=== PATIENT | male | born 1955 | race African-American/Black ===

== ENCOUNTER 2019-04-22 21:14 | Emergency (ER) | payer SELFPAY ==
[2019-04-22 21:52] LABS: #Basophils 0.1 thou/uL (0.0-0.2); #Eosinphils 0.2 thou/uL (0.0-0.7); #Lymphocytes 0.9 thou/uL (1.20-3.40); #Monocytes 0.6 thou/uL (0.11-0.59); #Neutrophils 3.3 thou/uL (1.40-6.50); %Basophils 1.4 % (0.0-1.0); %Eosinophils 4.8 % (0.0-10.0); %Lymphocytes 17.3 % (21.0-51.0); %Monocytes 12.4 % (0.0-10.0); %Neutrophils 64.1 % (42.0-75.0); Hemoglobin 13.4 g/dL (14.0-18.0); Mean Corpuscular HGB CONC 30.2 g/dL (32.0-36.0); Mean Corpuscular Volume 89.5 fL (78.0-98.0); Mean Platelet Volume 5.9 fL (7.4-10.4); Platelet Count 250 thou/uL (130-400); RBC Distribution Width 16.5 % (11.5-14.5); Red Blood Cell (RBC) Count 4.94 mill/uL (4.70-6.10); White Blood Cell (WBC) Count 5.1 thou/uL (4.8-10.8)
[2019-04-22 21:57] LABS: INR-International Normal Ratio 1.3; PTT 33.6 SEC (22.9-36.1); Prothrombin Time 16.4 SEC (12.0-14.7)
[2019-04-22 21:58] LABS: D-Dimer Test 2.83 *mcg/mL (0.27-0.43)
--- NOTE | 2019-04-22 22:04 | RAD ---
Chest 2 views HISTORY: Dyspnea. . FINDINGS: No comparison. Cardiac silhouette is enlarged. Pulmonary vasculature is engorged with wides pread reticulonodular interstitial prominence. Blunting right lateral costophrenic angle with some fluid tracking along the right pleural fissures. No lobar consolidation or evidence of pneumothorax. IMPRESSION: Cardiomegaly with mild pulmonary edema. Right pleural fluid.
[2019-04-22 22:05] LABS: ALT (SGPT) 22 U/L (8-55); AST (SGOT) 34 U/L (5-34); Albumin 3.5 g/dL (3.4-4.8); Alcohol 15 mg/dL (Less than 10); Alkaline Phosphatase 139 U/L (40-150); Anion Gap 17 mmol/L (10-20); BUN (Urea Nitrogen) 11 mg/dL (8.4-25.7); Bilirubin, Total 1.3 mg/dL (0.2-1.2); Calc. Creatinine Clearance 0 mL/min (70-130); Carbon Dioxide 24 mmol/L (23-31); Chloride 103 mmol/L (98-107); Estimated GFR-MDRD 81; Globulin 4.3 g/dL (2.4-3.5); Glucose 90 mg/dL (80-115); Potassium 3.5 mmol/L (3.5-5.1); Protein, Total 7.8 g/dL (5.8-8.1); Sodium 140 mmol/L (136-145)
[2019-04-22] MEDS ORDERED: Furosemide 40 MG/4 ML VIAL ONE (22:13)
[2019-04-22 22:22] LABS: CKMB 2.7 ng/mL (0-6.6)
[2019-04-22] MEDS ORDERED: Aspirin Chewable 81 MG TAB ONE (22:39)
== END 2019-04-22 23:02 | disposition short-term general hospital (02) ==
LOC: NAV ERS 21:14
DX: K74.60 Unspecified cirrhosis of liver (principal); I11.0 Hypertensive heart disease with heart failure; I50.9 Heart failure, unspecified; R79.89 Other specified abnormal findings of blood chemistry; Z79.899 Other long term (current) drug therapy
CPT/HCPCS: 71046; 80053; 80307; 82274; 82553; 83735; 83880; 84484; 85025; 85379; 85610; 85730; 93005; 94760; 96374; J1940

== ENCOUNTER 2019-07-14 03:17 | Emergency (ER) | payer SELFPAY ==
[2019-07-14 04:05] LABS: Eosinophils 2 % (0-10); Hemoglobin 12.4 g/dL (14.0-18.0); Lymphocytes 26 % (21-51); MDiff Complete? YES; Mean Corpuscular HGB CONC 30.7 g/dL (32.0-36.0); Mean Corpuscular Hemoglobin 28.3 pg (27.0-31.0); Mean Corpuscular Volume 92.2 fL (78.0-98.0); Monocytes 12 % (0-10); Neutrophil 60 % (42-75); Platelet Count 156 thou/uL (130-400); Platelet Morphology Comment Appears Adequate; RBC Distribution Width 16.5 % (11.5-14.5); RBC Morphology Normal; Red Blood Cell (RBC) Count 4.39 mill/uL (4.70-6.10); White Blood Cell (WBC) Count 3.9 thou/uL (4.8-10.8)
[2019-07-14 04:17] LABS: ALT (SGPT) 20 U/L (8-55); AST (SGOT) 24 U/L (5-34); Albumin 3.5 g/dL (3.4-4.8); Alkaline Phosphatase 134 U/L (40-150); Anion Gap 15 mmol/L (10-20); BUN (Urea Nitrogen) 10 mg/dL (8.4-25.7); Calc. Creatinine Clearance 0 mL/min (70-130); Calcium 9.2 mg/dL (7.8-10.44); Carbon Dioxide 22 mmol/L (23-31); Chloride 110 mmol/L (98-107); Estimated GFR-MDRD 85; Globulin 3.2 g/dL (2.4-3.5); Glucose 101 mg/dL (80-115); Potassium 3.5 mmol/L (3.5-5.1); Protein, Total 6.7 g/dL (5.8-8.1); Sodium 143 mmol/L (136-145)
--- NOTE | 2019-07-14 07:24 | RAD ---
CHEST 1 VIEW: Date: 07/14/19 INDICATION: Bilateral leg pain and swelling for 1 month with dyspnea. COMPARISON: Prior exam dated 07/01/19. FINDINGS: There is cardiomegaly with pulmonary vascular congestion and bilateral pleural effusions. This appear s largely stable to the prior exam. No pneumothorax is evident. No acute osseous abnormality is noted . IMPRESSION: Findings of mild to moderate CHF. POS: BH
== END 2019-07-14 04:38 | disposition home or self-care (01) ==
LOC: NAV ERS 03:17
DX: I11.0 Hypertensive heart disease with heart failure (principal); I50.9 Heart failure, unspecified; Z79.899 Other long term (current) drug therapy
CPT/HCPCS: 36415; 71045; 80053; 83880; 84484; 85025; 93005

== ENCOUNTER 2020-04-24 11:25 | Emergency (ER) | payer MEDICAID, OTHER ==
[2020-04-25 15:33] LABS: SARS-CoV-2 MS2 Positive; SARS-CoV-2 N Gene Positive; SARS-CoV-2 S Gene Positive; SARS-CoV-2 orf1ab Positive
== END 2020-04-24 11:57 | disposition home or self-care (01) ==
LOC: NAV ERS 11:25
DX: U07.1 COVID-19 (principal); I11.0 Hypertensive heart disease with heart failure; I50.9 Heart failure, unspecified; Z79.82 Long term (current) use of aspirin; Z79.899 Other long term (current) drug therapy
CPT/HCPCS: 87635; 99283; U0003

== ENCOUNTER 2020-05-22 07:47 | Emergency (ER) | payer OTHER ==
[2020-05-24 11:33] LABS: SARS-CoV-2 MS2 Positive; SARS-CoV-2 N Gene Positive; SARS-CoV-2 S Gene Positive; SARS-CoV-2 by NAA DETECTED (NotDetected); SARS-CoV-2 orf1ab Positive
== END 2020-05-22 08:33 | disposition home or self-care (01) ==
LOC: NAV ERS 07:47
DX: U07.1 COVID-19 (principal); I11.0 Hypertensive heart disease with heart failure; I50.9 Heart failure, unspecified; Z79.899 Other long term (current) drug therapy; Z79.82 Long term (current) use of aspirin
CPT/HCPCS: 87635; 99283; U0003

== ENCOUNTER 2020-07-04 08:44 | Emergency (ER) | payer OTHER ==
[2020-07-04 10:05] LABS: #Basophils 0.1 thou/uL (0.0-0.2); #Eosinphils 0.3 thou/uL (0.0-0.7); #Lymphocytes 0.3 thou/uL (1.20-3.40); #Monocytes 0.4 thou/uL (0.11-0.59); #Neutrophils 2.4 thou/uL (1.40-6.50); %Basophils 2.6 % (0.0-1.0); %Eosinophils 7.5 % (0.0-10.0); %Lymphocytes 9.3 % (21.0-51.0); %Monocytes 12.2 % (0.0-10.0); %Neutrophils 68.5 % (42.0-75.0); Hemoglobin 12.7 g/dL (14.0-18.0); Mean Corpuscular HGB CONC 29.4 g/dL (32.0-36.0); Mean Corpuscular Hemoglobin 27.9 pg (27.0-31.0); Mean Corpuscular Volume 94.6 fL (78.0-98.0); Mean Platelet Volume 7.1 fL (7.4-10.4); Platelet Count 125 thou/uL (130-400); RBC Distribution Width 13.3 % (11.5-14.5); Red Blood Cell (RBC) Count 4.56 mill/uL (4.70-6.10); White Blood Cell (WBC) Count 3.5 thou/uL (4.8-10.8)
[2020-07-04 10:15] LABS: Bilirubin Small (Negative); Blood, Urine Negative (Negative); Clarity Clear (Clear); Glucose, Urine (Dipstick) Negative (Negative); Ketone, Urine 15 mg/dL (Negative); Leukocyte Negative (Negative); Nitrite Negative (Negative); Specific Gravity, Urine 1.025 (1.005-1.030); Urobilinogen > or = 8.0 mg/dL (Less than 2); pH, Urine 5.5 (5.0-9.0)
--- NOTE | 2020-07-04 10:15 | RAD ---
EXAM: Single view of the chest HISTORY: Weakness COMPARISON: 07/17/2019 FINDINGS: Single view of the chest shows an enlarged but stable cardiomediastinal silhouette. There i s stable obscurity of the right costophrenic angle which may represent a small pleural effusion or scarring. No acute osseous abnormality. IMPRESSION: 1. Stable cardiomegaly 2. Stable small right pleural effusion
[2020-07-04 10:17] LABS: Protein, Urine (Dipstick) Trace mg/dL (Neg-Trace)
[2020-07-04 10:18] LABS: ALT (SGPT) 22 U/L (8-55); AST (SGOT) 21 U/L (5-34); Albumin 3.7 g/dL (3.4-4.8); Alkaline Phosphatase 107 U/L (40-110); Anion Gap 13 mmol/L (10-20); BUN (Urea Nitrogen) 13 mg/dL (8.4-25.7); Calc. Creatinine Clearance 0 mL/min (70-130); Calcium 8.7 mg/dL (7.8-10.44); Carbon Dioxide 23 mmol/L (23-31); Chloride 110 mmol/L (98-107); Estimated GFR-MDRD 77; Globulin 2.7 g/dL (2.4-3.5); Glucose 112 mg/dL (80-115); Potassium 3.9 mmol/L (3.5-5.1); Protein, Total 6.4 g/dL (5.8-8.1); Sodium 142 mmol/L (136-145)
[2020-07-04] MEDS ORDERED: Sodium Chloride 0.9% 1,000 ML ONE (10:46)
--- NOTE | 2020-07-04 10:46 | CT ---
BRAIN CT WITHOUT IV CONTRAST: Date: 07/04/2020 HISTORY: Weakness. FINDINGS: No focal mass or midline shift. No intra or extra-axial hemorrhage. Total opacification of the right sphenoid sinus with mucosal periosteal thickening, as well as minimal mucosal changes in the ethmoid sinuses and an air fluid level in the left maxillary sinus, evidence for sinusitis. IMPRESSION: No significant acute intracranial process. Sinus mucosal changes and air fluid level in the left maxi llary sinus, evidence for maxillary sinusitis. POS: [facility]
== END 2020-07-04 12:02 | disposition home or self-care (01) ==
LOC: NAV ERS 08:44
DX: R53.1 Weakness (principal); I11.0 Hypertensive heart disease with heart failure; I50.9 Heart failure, unspecified; Z79.82 Long term (current) use of aspirin; Z79.899 Other long term (current) drug therapy
CPT/HCPCS: 70450; 71045; 80053; 81003; 83605; 84484; 85025; 93005; J7050

== ENCOUNTER 2021-06-12 14:21 | Emergency (ER) | payer OTHER ==
[2021-06-13 16:29] LABS: SARS-CoV-2 PCR by NAA Not Detected (NotDetected)
== END 2021-06-12 15:03 | disposition home or self-care (01) ==
LOC: NAV ERS 14:21
DX: J06.9 Acute upper respiratory infection, unspecified (principal); Z20.822 Contact with and (suspected) exposure to COVID-19; I11.0 Hypertensive heart disease with heart failure; I50.9 Heart failure, unspecified; I25.10 Atherosclerotic heart disease of native coronary artery without angina pectoris
CPT/HCPCS: 99283; U0003; U0005

== ENCOUNTER 2021-10-21 11:26 | Emergency (ER) | payer OTHER | END 2021-10-21 12:10 | disposition home or self-care (01) | LOC: NAV ERS 11:26 | DX: R05.9 Cough, unspecified (principal); I11.0 Hypertensive heart disease with heart failure; I50.9 Heart failure, unspecified; I25.10 Atherosclerotic heart disease of native coronary artery without angina pectoris; Z79.82 Long term (current) use of aspirin; Z79.899 Other long term (current) drug therapy | CPT/HCPCS: 87804; 99283 ==

== ENCOUNTER 2022-01-10 13:11 | Emergency (ER) | payer OTHER | END 2022-01-10 14:19 | disposition home or self-care (01) | LOC: NAV ERS 13:11 | DX: J18.9 Pneumonia, unspecified organism (principal); I11.0 Hypertensive heart disease with heart failure; I50.9 Heart failure, unspecified; I25.10 Atherosclerotic heart disease of native coronary artery without angina pectoris; Z79.82 Long term (current) use of aspirin; Z79.899 Other long term (current) drug therapy | CPT/HCPCS: 71045 ==

== ENCOUNTER 2024-11-24 16:53 | Emergency (ER) | payer OTHER, MEDICAID ==
[2024-11-24] MEDS ORDERED: guaiFENesin ER 600 MG TAB ONE (17:44)
[2024-11-24 17:59] LABS: Anion Gap 13 mmol/L (10-20); BUN (Urea Nitrogen) 12 mg/dL (8.4-25.7); Calc. Creatinine Clearance 0 mL/min (70-130); Calcium 9.4 mg/dL (7.8-10.44); Carbon Dioxide 24 mmol/L (23-31); Chloride 109 mmol/L (98-107); Estimated GFR 59; Glucose 97 mg/dL (80-115); Potassium 3.8 mmol/L (3.5-5.1); Sodium 142 mmol/L (136-145)
[2024-11-24 18:12] LABS: Hematocrit 37.7 % (42.0-52.0); MDiff Complete? YES; Mean Corpuscular HGB CONC 31.7 g/dL (32.0-36.0); Mean Corpuscular Hemoglobin 26.4 pg (27.0-31.0); Mean Corpuscular Volume 83.2 fl (78.0-98.0); Mean Platelet Volume 6.4 fL (7.4-10.4); Platelet Count 86 10x3/uL (130-400); RBC Distribution Width 11.2 % (11.5-14.5); Red Blood Cell (RBC) Count 4.53 mill/uL (4.70-6.10); White Blood Cell (WBC) Count 2.7 10x3/uL (4.8-10.8)
[2024-11-24 18:54] LABS: Band 12 % (5-11); Lymphocytes 27 % (21-51); Monocytes 7 % (0-10); Neutrophil 53 % (42-75); Reactive Lymphocytes 1 % (0-10)
[2024-11-24 18:55] LABS: Anisocytosis SLIGHT = 6-15 cells (100X) (0-5/hpf); Hypochromia SLIGHT = 6-15 cells (100X) (0-5/hpf); Poikilocytosis SLIGHT = 6-15 cells (100X) (0-5/hpf)
[2024-11-24 18:56] LABS: Platelet Adequacy Comment Platelets Decreased; Tear Drops SLIGHT = 2-5 cells (100X) (0-1/hpf); Vacuoles SLIGHT
[2024-11-24] MEDS ORDERED: Sodium Chloride 0.9% 1,000 ML ONE (19:08)
== END 2024-11-24 20:55 | disposition short-term general hospital (02) ==
LOC: NAV ERS 16:53
DX: J93.83 Other pneumothorax (principal); D61.818 Other pancytopenia; I25.10 Atherosclerotic heart disease of native coronary artery without angina pectoris; I11.0 Hypertensive heart disease with heart failure; I50.9 Heart failure, unspecified
CPT/HCPCS: 36415; 71046; 80048; 85025; J7030